=== PATIENT | female | born 1955 | race African-American/Black ===

== ENCOUNTER 2022-05-29 15:54 | Inpatient (IN) | payer OTHER ==
[2022-05-29 18:02] LABS: BASO % 1.3 % (0-2.0); HEMOGLOBIN 12.9 GM/dL (10.7-15.3); MCH 30.1 pg (25.7-33.7); MCHC 33.1 g/dl (32.0-36.0); MEAN CELL VOLUME 90.9 fl (80-96); MEAN PLT VOLUME 8.1 fl (7.5-11.1); NEUT % 55.7 % (42.8-82.8); PLATELET COUNT 354 10^3/uL (134-434); RBC 4.29 M/mm3 (3.60-5.2); RDW 13.4 % (11.6-15.6); WHITE BLOOD COUNT 5.8 K/mm3 (4.0-10.0)
[2022-05-29 18:23] LABS: CALCIUM 9.2 mg/dL (8.5-10.1)
[2022-05-29 18:24] LABS: ALBUMIN 3.5 g/dl (3.4-5.0); BLOOD UREA NITROGEN 9.2 mg/dL (7-18)
[2022-05-29 18:27] LABS: CREATININE 0.7 mg/dL (0.55-1.3)
[2022-05-29 18:29] LABS: BILIRUBIN,TOTAL 0.5 mg/dL (0.2-1); TOT PROT 7.4 g/dl (6.4-8.2)
[2022-05-29] MEDS ORDERED: ACETAMINOPHEN 1000 MG/100 ML BAG IVPB ONE (18:32)
[2022-05-29] MEDS ORDERED: ACETAMINOPHEN INJECTION 100 ML IVPB ONE (18:41)
[2022-05-29] MEDS ORDERED: ENOXAPARIN NA (PORCINE) 100 MG/1 ML DISP.SYRIN SQ ONE ×2 (22:15→22:23)
[2022-05-29] MEDS ORDERED: morphine CARPU-JECT 2 MG/1 ML DISP.SYRIN IVPUSH ONE (23:22)
[2022-05-29] MEDS ORDERED: APIXABAN 5 MG TABLET ONE (23:24)
[2022-05-29] MEDS ORDERED: APIXABAN 5 MG TABLET PO SCH (23:30)
[2022-05-30] MEDS ORDERED: morphine CARPU-JECT 4 MG/1 ML DISP.SYRIN IVPUSH SCH (04:15)
[2022-05-30 05:16] VITALS: BMI 32.8
[2022-05-30 08:37] LABS: EPI CELLS 5 /uL (0-25.1); HYALINE CASTS 0 /uL (0-3.1); URINE APPEARANCE CLOUDY; URINE BACTERIA >9,000 /uL (0-1359); URINE BILIRUBIN NEGATIVE (NEGATIVE); URINE COLOR YELLOW; URINE GLUCOSE (UA) NEGATIVE (NEGATIVE); URINE KETONE NEGATIVE (NEGATIVE); URINE LEUK ESTERASE 1+ (NEGATIVE); URINE NITRITE NEGATIVE (NEGATIVE); URINE PROTEIN NEGATIVE (NEGATIVE); URINE RBC 4 /uL (0-23.9); URINE WBC 30 /uL (0-25.8)
[2022-05-30 09:37] LABS: BASO % 0.7 % (0-2.0); EOS % 1.8 % (0-4.5); HEMATOCRIT 39.2 % (32.4-45.2); LYMPH % 24.6 % (8-40); MCHC 33.3 g/dl (32.0-36.0); MEAN PLT VOLUME 8.5 fl (7.5-11.1); MONO % 6.6 % (3.8-10.2); NEUT % 66.3 % (42.8-82.8); PLATELET COUNT 327 10^3/uL (134-434); RBC 4.35 M/mm3 (3.60-5.2); RDW 13.4 % (11.6-15.6); WHITE BLOOD COUNT 5.8 K/mm3 (4.0-10.0)
[2022-05-30] MEDS: ENOXAPARIN NA (PORCINE) 100 MG/1 ML DISP.SYRIN SQ SCH ×2 (09:53→22:55)
[2022-05-30] MEDS: LISINOPRIL 10 MG TABLET PO SCH (09:57)
[2022-05-30 09:58] LABS: CALCIUM 9.4 mg/dL (8.5-10.1)
[2022-05-30 09:59] LABS: BLOOD UREA NITROGEN 7.4 mg/dL (7-18)
[2022-05-30 10:01] LABS: CREATININE 0.7 mg/dL (0.55-1.3)
[2022-05-31] MEDS: ENOXAPARIN NA (PORCINE) 100 MG/1 ML DISP.SYRIN SQ SCH ×2 (09:38→20:59)
[2022-05-31] MEDS: LISINOPRIL 10 MG TABLET PO SCH (09:38)
[2022-05-31 09:47] LABS: BASO % 0.8 % (0-2.0); EOS % 2.6 % (0-4.5); HEMATOCRIT 37.3 % (32.4-45.2); HEMOGLOBIN 12.2 GM/dL (10.7-15.3); LYMPH % 40.2 % (8-40); MCH 29.8 pg (25.7-33.7); MCHC 32.8 g/dl (32.0-36.0); MEAN CELL VOLUME 90.8 fl (80-96); MEAN PLT VOLUME 8.8 fl (7.5-11.1); MONO % 6.8 % (3.8-10.2); NEUT % 49.6 % (42.8-82.8); PLATELET COUNT 348 10^3/uL (134-434); RDW 13.5 % (11.6-15.6); WHITE BLOOD COUNT 5.2 K/mm3 (4.0-10.0)
[2022-05-31 10:13] LABS: CALCIUM 9.2 mg/dL (8.5-10.1)
[2022-05-31 10:14] LABS: ALBUMIN 3.2 g/dl (3.4-5.0); BLOOD UREA NITROGEN 11.8 mg/dL (7-18)
[2022-05-31 10:17] LABS: CREATININE 0.7 mg/dL (0.55-1.3)
[2022-05-31 10:19] LABS: BILIRUBIN,TOTAL 0.6 mg/dL (0.2-1); TOT PROT 6.6 g/dl (6.4-8.2)
[2022-05-31] MEDS ORDERED: AZTREONAM 1 GM VIAL (RESTRICTED TO ID) ONE (17:14)
[2022-05-31] MEDS ORDERED: DEXTROSE 5%-WATER - 50 ML IVPB ONE (17:14)
[2022-05-31] MEDS: AZTREONAM 1 GM in DEXTROSE 5%-WATER - 50 ML IVPB SCH ×2 (17:21→17:22)
[2022-06-01] MEDS ORDERED: AZTREONAM 1 GM VIAL (RESTRICTED TO ID) ONE ×3 (00:58→17:00)
[2022-06-01] MEDS ORDERED: DEXTROSE 5%-WATER - 50 ML IVPB ONE ×3 (00:58→17:00)
[2022-06-01] MEDS: AZTREONAM 1 GM in DEXTROSE 5%-WATER - 50 ML IVPB SCH ×3 (01:07→18:07)
[2022-06-01] MEDS: AMINO ACIDS/PROTEIN HYDROLYS 30 ML LIQUID.PKT PO SCH (09:01)
[2022-06-01] MEDS: ASCORBIC ACID 500 MG TABLET (FP) PO SCH (09:18)
[2022-06-01] MEDS: ENOXAPARIN NA (PORCINE) 100 MG/1 ML DISP.SYRIN SQ SCH ×2 (09:18→21:29)
[2022-06-01 09:52] LABS: HEMATOCRIT 38.6 % (32.4-45.2); HEMOGLOBIN 12.8 GM/dL (10.7-15.3); MCH 30.1 pg (25.7-33.7); MCHC 33.2 g/dl (32.0-36.0); MEAN CELL VOLUME 90.5 fl (80-96); MEAN PLT VOLUME 8.1 fl (7.5-11.1); PLATELET COUNT 340 10^3/uL (134-434); RBC 4.27 M/mm3 (3.60-5.2); RDW 13.9 % (11.6-15.6); WHITE BLOOD COUNT 5.3 K/mm3 (4.0-10.0)
[2022-06-01 10:29] LABS: ALBUMIN 3.2 g/dl (3.4-5.0); BLOOD UREA NITROGEN 10.7 mg/dL (7-18); MAGNESIUM 2.2 mg/dL (1.8-2.4)
[2022-06-01 10:32] LABS: CREATININE 0.8 mg/dL (0.55-1.3); PHOSPHOROUS 3.6 mg/dL (2.5-4.9)
[2022-06-01 10:34] LABS: BILIRUBIN,TOTAL 0.4 mg/dL (0.2-1)
[2022-06-01] MEDS ORDERED: HYDROCORTISONE 1% TOPICAL CREAM 30 GM TUBE TP PRN (17:14)
[2022-06-02] MEDS ORDERED: AZTREONAM 1 GM VIAL (RESTRICTED TO ID) ONE ×2 (01:07→10:32)
[2022-06-02] MEDS ORDERED: DEXTROSE 5%-WATER - 50 ML IVPB ONE ×2 (01:07→10:32)
[2022-06-02] MEDS: AZTREONAM 1 GM in DEXTROSE 5%-WATER - 50 ML IVPB SCH ×3 (01:10→18:36)
[2022-06-02] MEDS: AMINO ACIDS/PROTEIN HYDROLYS 30 ML LIQUID.PKT PO SCH (08:52)
[2022-06-02] MEDS: ENOXAPARIN NA (PORCINE) 100 MG/1 ML DISP.SYRIN SQ SCH (10:34)
[2022-06-02] MEDS: ASCORBIC ACID 500 MG TABLET (FP) PO SCH (10:35)
[2022-06-02 20:05] LABS: MAGNESIUM 2.2 mg/dL (1.8-2.4)
[2022-06-02] MEDS: APIXABAN 5 MG TABLET PO SCH (21:27)
[2022-06-03] MEDS: AMINO ACIDS/PROTEIN HYDROLYS 30 ML LIQUID.PKT PO SCH (07:37)
[2022-06-03 08:41] LABS: HEMATOCRIT 35.8 % (32.4-45.2); HEMOGLOBIN 12.2 GM/dL (10.7-15.3); MCH 30.3 pg (25.7-33.7); MEAN CELL VOLUME 89.3 fl (80-96); PLATELET COUNT 331 10^3/uL (134-434); RBC 4.01 M/mm3 (3.60-5.2); RDW 13.6 % (11.6-15.6); WHITE BLOOD COUNT 4.8 K/mm3 (4.0-10.0)
[2022-06-03 09:10] LABS: ALBUMIN 3.1 g/dl (3.4-5.0); BLOOD UREA NITROGEN 8.2 mg/dL (7-18); CALCIUM 9.1 mg/dL (8.5-10.1)
[2022-06-03 09:13] LABS: CREATININE 0.7 mg/dL (0.55-1.3)
[2022-06-03 09:14] LABS: TOT PROT 6.8 g/dl (6.4-8.2)
[2022-06-03 09:15] LABS: BILIRUBIN,TOTAL 0.6 mg/dL (0.2-1)
[2022-06-03] MEDS: LISINOPRIL 10 MG TABLET PO SCH (09:31)
[2022-06-03] MEDS: amLODIPine BESYLATE 10 MG TABLET (FP) PO SCH (09:31)
[2022-06-03] MEDS: ASCORBIC ACID 500 MG TABLET (FP) PO SCH (09:31)
[2022-06-03] MEDS: APIXABAN 5 MG TABLET PO SCH ×2 (09:32→22:19)
[2022-06-04 07:32] LABS: BLOOD UREA NITROGEN 11.3 mg/dL (7-18)
[2022-06-04 07:35] LABS: CREATININE 0.7 mg/dL (0.55-1.3)
[2022-06-04] MEDS ORDERED: SODIUM CHLORIDE 0.9%/KCL 20 MEQ/1,000 ML INFUS.BAG IV SCH (08:30)
[2022-06-04] MEDS: AMINO ACIDS/PROTEIN HYDROLYS 30 ML LIQUID.PKT PO SCH ×2 (08:57→09:11)
[2022-06-04] MEDS: ASCORBIC ACID 500 MG TABLET (FP) PO SCH (09:09)
[2022-06-04] MEDS: D5-NS + 20 MEQ KCL - 20 MEQ/1,000 ML INFUS.BAG IV SCH ×2 (09:09→22:08)
[2022-06-04] MEDS: LISINOPRIL 10 MG TABLET PO SCH (09:09)
[2022-06-04] MEDS: CLOPIDOGREL BISULFATE 75 MG TABLET (FP) PO SCH (09:09)
[2022-06-04] MEDS: APIXABAN 5 MG TABLET PO SCH ×2 (09:09→21:37)
[2022-06-04] MEDS: amLODIPine BESYLATE 10 MG TABLET (FP) PO SCH (09:09)
[2022-06-04] MEDS ORDERED: GLYCERIN 1 RECTAL SUPPOSITORY, ADULT PR ONE (16:41)
[2022-06-05] MEDS: AMINO ACIDS/PROTEIN HYDROLYS 30 ML LIQUID.PKT PO SCH ×2 (08:34→08:51)
[2022-06-05] MEDS: ASCORBIC ACID 500 MG TABLET (FP) PO SCH (09:30)
[2022-06-05] MEDS: APIXABAN 5 MG TABLET PO SCH (09:30)
[2022-06-05] MEDS: amLODIPine BESYLATE 10 MG TABLET (FP) PO SCH (09:30)
[2022-06-05] MEDS: LISINOPRIL 10 MG TABLET PO SCH (09:30)
[2022-06-05] MEDS: CLOPIDOGREL BISULFATE 75 MG TABLET (FP) PO SCH (09:30)
[2022-06-05 09:59] LABS: HEMATOCRIT 37.2 % (32.4-45.2); HEMOGLOBIN 12.2 GM/dL (10.7-15.3); MCH 29.9 pg (25.7-33.7); MCHC 32.9 g/dl (32.0-36.0); MEAN CELL VOLUME 90.9 fl (80-96); MEAN PLT VOLUME 8.1 fl (7.5-11.1); PLATELET COUNT 323 10^3/uL (134-434); RBC 4.09 M/mm3 (3.60-5.2); RDW 13.9 % (11.6-15.6); WHITE BLOOD COUNT 5.8 K/mm3 (4.0-10.0)
[2022-06-05 10:21] LABS: BLOOD UREA NITROGEN 7.2 mg/dL (7-18)
[2022-06-05 10:24] LABS: CREATININE 0.7 mg/dL (0.55-1.3)
[2022-06-05 15:07] VITALS: BP 115/65; PULSE 72; TEMP 97.5
== END 2022-06-05 17:36 | disposition home health service (06) | DRG 300 ==
LOC: JER 15:54 → JERBED 23:22 → J6S 05-30 03:47
PROVIDERS: ADMIT Internal Medicine; ATTEND Internal Medicine
DX: I82.512 Chronic embolism and thrombosis of left femoral vein (principal); I69.354 Hemiplegia and hemiparesis following cerebral infarction affecting left non-dominant side; D68.61 Antiphospholipid syndrome; N39.0 Urinary tract infection, site not specified; I87.1 Compression of vein; I10 Essential (primary) hypertension; E78.5 Hyperlipidemia, unspecified; F17.210 Nicotine dependence, cigarettes, uncomplicated; E55.9 Vitamin D deficiency, unspecified; B96.20 Unspecified Escherichia coli [E. coli] as the cause of diseases classified elsewhere; K59.00 Constipation, unspecified
CPT/HCPCS: 0241U-QW; 36415; 71045-TC-FY; 74018-TC-FY; 74177-TC; 76705-TC; 80048; 80053; 81003; 82272; 83605; 83735; 84100; 85025; 85027; 87086; 87186; 93005; 93010; 93306-TC; 93970-TC; 93971-TC; 97162-GP; 99285-25; Q9967

== ENCOUNTER 2023-08-13 19:17 | Emergency (ER) | payer OTHER ==
[2023-08-13 19:46] VITALS: RESP 20; TEMP 98.3; BMI 36.6
[2023-08-13] MEDS ORDERED: ACETAMINOPHEN 500 MG TABLET (FP) PO ONE (22:59)
[2023-08-13] MEDS ORDERED: ACETAMINOPHEN 325 MG TABLET (FP) ONE ×2 (23:00→23:07)
[2023-08-13 23:03] VITALS: PULSE 63
[2023-08-13 23:04] VITALS: BP 140/88
== END 2023-08-14 03:54 | disposition home or self-care (01) ==
LOC: JER 19:17
DX: M79.10 Myalgia, unspecified site (principal); S31.811A Laceration without foreign body of right buttock, initial encounter; X58.XXXA Exposure to other specified factors, initial encounter
CPT/HCPCS: 99283-25

== ENCOUNTER 2024-09-26 17:19 | Emergency (ER) | payer OTHER ==
[2024-09-26 17:33] VITALS: BP 96/62; PULSE 73; RESP 18; TEMP 99.4; BMI 36.6
[2024-09-26] MEDS ORDERED: ACETAMINOPHEN 500 MG TABLET (FP) ONE (18:51)
[2024-09-26] MEDS: ACETAMINOPHEN 500 MG TABLET (FP) PO ONE (19:00)
== END 2024-09-26 19:36 | disposition home or self-care (01) ==
LOC: JER 17:19
DX: M79.641 Pain in right hand (principal); G89.29 Other chronic pain; M19.90 Unspecified osteoarthritis, unspecified site
CPT/HCPCS: 73110-TC-RT-FY; 73130-TC-RT-FY; 93971; 99284-25